=== PATIENT | female | born 1955 | race Caucasian/White ===

== ENCOUNTER 2019-09-05 08:57 | Inpatient (IN) | payer MEDICARE ==
--- NOTE | 2019-08-23 03:54 | HPE ---
DATE OF PLANNED ADMISSION: 09/05/2019 CHIEF COMPLAINT: Plan for right shoulder reverse total shoulder arthroplasty (RTSA). HISTORY OF PRESENT ILLNESS: This is a 64-year-old female who underwent rotator cuff repair. This failed. She has osteoarthritis. She has great difficulty lifting her shoulder and pain deep in the shoulder with stiffness and grinding. We plan to perform right shoulder RTSA for her. She is here today for preoperative assessment. She has not yet gotten the blood work, chest x-ray, and ECG; however, she plans to do this today at [facility]. She is otherwise healthy with only dyslipidemia. Therefore, we have not ordered a preoperative consultation. PHYSICAL EXAMINATION: This is a well-appearing 64-year-old female. Active/passive forward elevation about 90 degrees, internal rotation of 10 degrees. She has some crepitus/grinding with joint pain deep in the shoulder. Otherwise, no obvious overlying limb swelling, deformity, or atrophy. Normal sensation axillary nerve plus median (M), radial (R), ulnar (U), anterior interosseous nerve (AIN), posterior interosseous nerve (PIN) good motor function. ASSESSMENT AND PLAN: This 64-year-old female has planned surgery in about 3 weeks for reverse total shoulder arthroplasty. We will go ahead and order an urgent CT scan as well to help with surgical planning as well as day to the operating room (OR) implant positioning. In addition, I have reminded her to fax over the blood work, chest x-ray, and ECG to the office. I answered a number of her questions, including recovery length time, planned physical therapy, sling, and position with the patient at length. Looking forward to seeing her the day of the OR.
[~2019-09-05] VITALS: Ht 167.6 cm; Wt 67.0 kg
[2019-09-05] VITALS (7 sets, daily range): BP systolic 115–122; BP diastolic 55–74
[~2019-09-05 08:57] MED LIST: ACETAMINOPHEN 500 MG TAB PO ONE; BUSP-29 PO; CLON0.5T; CLON1TAB; COUM1TAB18; FLAG500T; GEODON; K-TA10TA2 PO; KLON1TAB PO; LIDOCAINE 1% MDV 20ML VIAL SQ PRN; LOVE1INJ; LR 1,000 ML IV ONE; NICO14DI3; PERCOCET 5MG/325MG TAB PO ONE; POTASSIUM; PRISTIQ; PROV90AE; REGL5TAB2 PO; SEROQUEL; SIMV20TA22 PO; UNRESOLVED CLARIFICATION ENTRY XX SCH; VANC12CA; ceFAZolin SOD 2 GM in IV 1 EA IV ONE
[2019-09-05] MEDS ORDERED: CelecoXIB 400 MG CAP PO ONE (10:00)
[2019-09-05] MEDS ORDERED: MIDAZOLAM INJ 2 MG/2 ML VIAL (J2250) As Ordered ONE ×2 (10:19→10:31)
[2019-09-05] MEDS ORDERED: fentaNYL 100 MCG/2 ML INJECTION (J3010) As Ordered ONE (10:19)
[2019-09-05] MEDS ORDERED: SCOPOLAMINE 1MG TRANSDERMAL PATCH As Ordered ONE (10:27)
[2019-09-05] MEDS ORDERED: fentaNYL 250 MCG/5 ML INJECTION (J3010) As Ordered ONE (10:31)
[2019-09-05] MEDS ORDERED: propofoL 200 MG/20 ML VIAL As Ordered ONE (10:31)
[2019-09-05] MEDS ORDERED: ROCURONIUM BROMIDE 50 MG/5 ML VIAL As Ordered ONE (10:31)
[2019-09-05] MEDS ORDERED: LIDOCAINE 2% INJ 100 MG/5 ML SDV (FOR ANES.) As Ordered ONE (10:31)
[2019-09-05] MEDS ORDERED: SCOPOLAMINE 1MG TRANSDERMAL PATCH TOP ONE (10:45)
[2019-09-05] MEDS ORDERED: LACRILUBE (AKWA TEARS) OPHTH OINT 3.5 GM As Ordered ONE (10:52)
[2019-09-05] MEDS ORDERED: TRANEXAMIC ACID 100 MG/ML 10ML VIAL As Ordered ONE (10:57)
[2019-09-05] MEDS ORDERED: ceFAZolin 1GM INJ (J0690 PER 500MG) As Ordered ONE (10:58)
[2019-09-05] MEDS ORDERED: EPINEPHrine INJ 1 MG/ML 1ML VIAL As Ordered ONE (10:58)
[2019-09-05] MEDS ORDERED: BUPIVACAINE LIPOSOME/PF 1.3% 20ML VIAL (13.3MG/ML)(EXPAREL)(C9290 PER1MG) As Ordered ONE (10:58)
[2019-09-05] MEDS ORDERED: BUPIVACAINE HCL 0.25% 10 ML VIAL As Ordered ONE ×2 (10:58→11:50)
[2019-09-05] MEDS ORDERED: BUPIVACAINE HCL 0.5% 10 ML VIAL As Ordered ONE (11:50)
[2019-09-05] MEDS ORDERED: SUCCINYLCHOLINE 100 MG/5 ML SYRINGE (J0330) As Ordered ONE (12:01)
[2019-09-05] MEDS ORDERED: PHENYLephrine HCL 500 MCG/5 ML (100MCG/ML) SYRINGE (J2370) As Ordered ONE (12:01)
[2019-09-05] MEDS ORDERED: dexameTHASONE 4 MG/ML 1ML VIAL (J1100) As Ordered ONE (12:30)
[2019-09-05] MEDS ORDERED: ONDANSETRON 4MG/2ML VIAL (J2405) As Ordered ONE (12:30)
[2019-09-05] MEDS ORDERED: METOCLOPRAMIDE INJ 10MG/2ML VIAL (J2765) As Ordered ONE (12:30)
[2019-09-05] MEDS ORDERED: MIDAZOLAM INJ 2 MG/2 ML VIAL (J2250) IV ONE (13:15)
[2019-09-05] MEDS ORDERED: fentaNYL 100 MCG/2 ML INJECTION (J3010) IV ONE (13:15)
[2019-09-05] MEDS ORDERED: SUGAMMADEX SODIUM 500 MG/5 ML VIAL (BRIDION) As Ordered ONE (13:15)
[2019-09-05] MEDS ORDERED: ROPIvacaine 0.5% 30 ML INJECTION (J2795 PER 1MG) ONE (13:33)
[2019-09-05] MEDS ORDERED: dexameTHASONE 10 MG/1 ML VIAL PRES.FREE (J1100) ONE (13:33)
[2019-09-05] MEDS ORDERED: ONDANSETRON 4MG/2ML VIAL (J2405) IV PRN ×2 (14:15→14:30)
[2019-09-05] MEDS ORDERED: LR 1,000 ML IV SCH ×2 (14:15→14:30)
[2019-09-05] MEDS ORDERED: oxyCODONE 5MG TAB PO PRN (14:15)
[2019-09-05] MEDS ORDERED: fentaNYL 100 MCG/2 ML INJECTION (J3010) IV PRN (14:15)
[2019-09-05] MEDS ORDERED: HYDROMORPHONE HCL 0.5 MG/ 0.5 ML SYRINGE (J1170 PER 1) As Ordered ONE (14:27)
[2019-09-05] MEDS: HYDROMORPHONE HCL 0.5 MG/ 0.5 ML SYRINGE (J1170 PER 1) IV PRN ×5 (14:29→15:18)
[2019-09-05] MEDS ORDERED: MORPHINE 4 MG/ML 1ML VIAL/SYRINGE (J2270) IV PRN (14:30)
[2019-09-05] MEDS ORDERED: PERCOCET 5MG/325MG TAB PO PRN ×2 (14:30)
[2019-09-05] MEDS ORDERED: oxyCODONE 5MG TAB As Ordered ONE (15:17)
[2019-09-05] MEDS: ceFAZolin SOD 2 GM in IV 1 EA IV SCH (17:16)
[2019-09-05] MEDS: ACETAMINOPHEN TAB 650MG DOSE (2X325MG) PO PRN ×2 (17:17→20:21)
[2019-09-05] MEDS ORDERED: PROMETHAZINE INJ 25 MG/ML VIAL (J2550) IV PRN (21:30)
[2019-09-06] MEDS: ceFAZolin SOD 2 GM in IV 1 EA IV SCH (01:09)
[2019-09-06] MEDS: MORPHINE 2 MG/ML 1ML VIAL (J2270) IV PRN ×2 (01:10→03:52)
[2019-09-06 02:00] VITALS: BP 115/65
[2019-09-06] MEDS: ACETAMINOPHEN TAB 650MG DOSE (2X325MG) PO PRN ×2 (03:50→09:33)
[2019-09-06 06:00] VITALS: BP 115/65
[2019-09-06] MEDS ORDERED: ACET-897 PO (07:43)
[2019-09-06] MEDS ORDERED: OXYC-517 PO ×2 (07:43→07:46)
--- NOTE | 2019-09-06 09:02 | RO ---
DATE OF SURGERY: 09/05/2019 PREOPERATIVE DIAGNOSIS: Right shoulder osteoarthritis with massive rotator cuff tear. POSTOPERATIVE DIAGNOSIS: Right shoulder osteoarthritis with massive rotator cuff tear. PLANNED PROCEDURE: Right shoulder reverse total shoulder arthroplasty. PROCEDURE PERFORMED: Right shoulder reverse total shoulder arthroplasty. SURGEON: Matthew Schrader MD HAND II TUBE BENDER: CHARLES Yu CEMENT TESTER ASSISTANT: Dr. Castellon TYPE OF ANESTHETIC: General endotracheal anesthetic plus block. OPERATIVE PREAMBLE: This 64-year-old female underwent rotator cuff repair. This failed. She also has osteoarthritis with superior humeral head migration. We talked about pros, cons, risks, benefits of nonoperative treatment versus attempted arthroscopy for debridement, rotator cuff repair versus reversal shoulder arthroplasty. She wished to go ahead with a definitive solution, which would be reverse total shoulder arthroplasty (RTSA). Specific surgical risks were discussed and reiterated in preoperative holding. I marked the right upper extremity. She had a block before surgery, and we proceeded to surgery. OPERATIVE REPORT: Patient was brought to operating theater. They were placed supine on the operating room table. 2 grams of IV Ancef and 2 grams of IV tranexamic acid was administered. All bony prominences were padded. Beach chair was used with spider arm positioner to the patient's right side. General anesthesia was induced. The arm was prepped and draped in the usual sterile fashion allowing at least over 3 minutes prep solution drying time. The patient was sat up at a 45-degree angle. Preoperative time-out was performed to confirm the site, the patient, and surgery. Began by making a standard deltopectoral approach. Then carried dissection down through the skin and subcutaneous tissue achieving meticulous hemostasis. The deltopectoral interval and cephalic vein retracted out laterally. I sized the lateral border of the conjoined tendon and retracted this medially. I identified the biceps sheath and tendon. I performed biceps tenodesis with #2 FiberWire. I performed a subscapularis tenotomy, placed stay sutures in that. Retracted this medially. Then using external rotation, I dislocated the humeral head anteriorly. Removed osteophytes along the inferior humeral head and metaphyseal region. I placed the intramedullary cut guide at 20 degrees retroversion in line with the arm. I performed the head cut. This was removed. I then used retractors to access the glenoid. Labrum was removed as well as the long head of biceps tendon stump removed. Inserted the central pin in the center of the glenoid. I reamed the face very slightly preferentially anteriorly down to bleeding bone. I then used the SR medium peg drill centrally. I then thoroughly irrigated using pulse lavage. I then impacted the SR baseplate. I used the flexible drill to drill the superior and inferior screws and inserted a 20 mm screw superiorly and 25 mm screw inferiorly. This achieved a good bite. The inferior most screw achieved a slightly better bite. I then again irrigated and impacted a 20 mm glenosphere concentric with the extended portion inferiorly. Humeral side was then brought anteriorly. I used a 14 mm stem through reverse body trialing. This was stable and solid. I used the standard 40 mm poly that was stable and solid. No obvious impingement. No dislocation with manual traction extension. It was quite stable and solid. The patient able to get their as well as full external rotation without levering out. This was similarly stable with the arm on side of the body during the body. These were the final components. Just prior to that, I had used the reverse body reamer prior to trialing. Trials were removed and assembled on the back table and impacted into the humeral canal in 20 degrees retroversion. Again, the reverse body was irrigated, cleaned, and then the standard size 40 mm polyethylene component was then impacted in place. The humerus was then reduced and again stable and solid. Normal tension was appreciated in full range of motion. I then attempted to repair the subscapularis; however, this was quite extremely thin tissue. There was no obvious cuff to repair to, so I decided to do bone tunnels. I placed one bone tunnel using the #2 FiberWire suture superiorly as well as 4.75 mm BioComposite Arthrex SwiveLock anchor inferiorly with the four sutures through that. The top sheared off slightly, but the anchor was stable and solid. The wound was thoroughly irrigated. Deltopectoral interval was closed with #1 Vicryl sutures, subcutaneous tissue with #2-0 Vicryl, and the skin with #3-0 Monocryl. 20 mL of Exparel mixed with 20 mL of 0.25% Marcaine and 20 mL of normal saline was instilled in and around the incision site. Steri-Strips were applied. Adaptic 4 x 8 gauze and ABD dressing was then placed with cloth tape. The patient's left upper extremity was placed into a sling after they were removed from spider arm setup. Patient was awoken from general anesthetic, transferred off the operating room table, and taken to postanesthetic care unit in stable condition. All sponge, needle, and instrument counts were correct. Estimated blood loss (EBL) 200 mL. PLAN: The patient will be admitted overnight. Be discharged home tomorrow as long as they are comfortable. They will followup in the office in 2 weeks' time. They will start pendulum exercises as well as hand, wrist, and elbow exercises, but no lifting of the arm or external rotation beyond neutral. I have communicated this to their significant other as well. We will also give two doses of postoperative antibiotics in the standard fashion here at [facility].
[2019-09-06] MEDS ORDERED: PREVNAR 13 VACCINE SYRINGE (CPT CODE:90670) IM ONE (10:00)
--- NOTE | 2019-09-09 15:46 | DSES ---
DATE OF ADMISSION: 09/05/2019 DATE OF DISCHARGE: 09/06/2019 ADMISSION DIAGNOSIS: Osteoarthritis right shoulder. OTHER DIAGNOSES: 1. Obesity. 2. Gastric reflux disease. 3. Elevated lipids. 4. Anxiety. 5. Depression. DISCHARGE DIAGNOSIS: Osteoarthritis right shoulder status post right shoulder reverse total shoulder arthroplasty. HISTORY: A 64-year-old female patient, prior history of a rotator cuff repair with persistent right shoulder pain and osteoarthritis. She failed to improve with conservative management. She was admitted for elective shoulder replacement. OPERATION PERFORMED: Right shoulder reverse total shoulder arthroplasty. HOSPITAL COURSE: The patient was admitted on day of surgery, underwent a right total shoulder reverse arthroplasty. It was well tolerated by the patient without incident. She did well in the postoperative period and her hospital course was without complications. She was up with the nursing staff and therapy. On day of discharge she was doing well. Her pain was controlled. She will use oral pain medications for pain control. She will use her sling as directed. She will follow up in our office in two weeks. She understands the postoperative instructions. No use of the right upper extremity. She will be nonweightbearing on the right upper extremity, would exercise what she can and cannot do. She will use oral pain medication for pain control. She will follow up in two weeks with Dr. Schrader. Please refer to the medical record for further details.
== END 2019-09-06 10:35 | disposition home or self-care (01) | DRG 483 ==
LOC: M SDC 08:57 → M MS5PR 08:57 → M OR 08:57 → UNDOADMIN 08:57 → EDSTATUS 11:15 → M SDC 15:45 → M OR 15:45 → M MS5PR 15:45 → UNDODISIN 09-06 10:35 → M SDC 09-06 10:35 → M MS5PR 09-06 10:35
PROVIDERS: ADMIT Orthopaedic Surgery Sports Medicine; ATTEND Orthopaedic Surgery Sports Medicine
PROC: 0RRJ00Z Replacement of Right Shoulder Joint with Reverse Ball and Socket Synthetic Substitute, Open Approach (ICD-10-PCS; principal; 2019-09-05 11:15)
DX: M19.011 Primary osteoarthritis, right shoulder (principal); M75.121 Complete rotator cuff tear or rupture of right shoulder, not specified as traumatic; K21.9 Gastro-esophageal reflux disease without esophagitis; F41.9 Anxiety disorder, unspecified; F32.9 Major depressive disorder, single episode, unspecified

== ENCOUNTER → 2020-09-12 | Outpatient (CLI) | payer MEDICARE ==
[~2020-09-12] MED LIST changes: +ACET-897 PO; -ACETAMINOPHEN 500 MG TAB PO ONE; -LIDOCAINE 1% MDV 20ML VIAL SQ PRN; -LR 1,000 ML IV ONE; +OXYC-517 PO; -PERCOCET 5MG/325MG TAB PO ONE; -UNRESOLVED CLARIFICATION ENTRY XX SCH; -ceFAZolin SOD 2 GM in IV 1 EA IV ONE
--- NOTE | 2020-09-12 12:50 | REP ---
INDICATION: PAIN IN RT ARM. COMPARISON: Comparison chest x-ray February 27, 2016.. TECHNIQUE: Four views of the right shoulder are presented FINDINGS: . there is a right shoulder arthroplasty in good position new since the prior chest x-ray. There are surgical clips in the right axillary soft tissues again noted. The distal clavicle appears AB resected on the right. The glenohumeral and acromioclavicular joints are normally aligned. The arthroplasty components are well aligned with respect to each other and there are hoh bones. IMPRESSION: Status post right shoulder arthroplasty and distal clavicle resection. Surgical clips right axilla. No acute bony abnormality. <Electronically signed by Tonny Beckman > 09/12/20 [id number]
--- NOTE | 2020-09-12 12:54 | REP ---
INDICATION: PAIN IN RT ARM. COMPARISON: Right shoulder performed earlier the same date. TECHNIQUE: There are two views. FINDINGS: The right shoulder arthroplasty is again identified, not significantly changed. There is no fracture or dislocation. There are no calcifications or foreign bodies. IMPRESSION: Negative right humerus except for a right shoulder arthroplasty. <Electronically signed by Cmaden Billingsley > 09/12/20 [id number]
--- NOTE | 2020-09-12 13:36 | REP ---
INDICATION: PAIN IN RT ARM. COMPARISON: None. TECHNIQUE: Two views, AP and lateral projections. FINDINGS: Mineralization and joint spaces are unremarkable. There is no effusion. There are no calcifications or foreign bodies. There is no fracture or dislocation. 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 IMPRESSION: Essentially negative two view right elbow. <Electronically signed by Camden Billingsley > 09/12/20 [id number]
== END ==
LOC: M SOG 11:26
PROVIDERS: ATTEND Orthopaedic Surgery Sports Medicine
DX: Z47.1 Aftercare following joint replacement surgery (principal); M79.621 Pain in right upper arm

== ENCOUNTER → 2021-08-19 | Outpatient (CLI) | payer MEDICARE | LOC: M SOG 09:17 | PROVIDERS: ATTEND Orthopaedic Surgery Sports Medicine | DX: Z47.1 Aftercare following joint replacement surgery (principal); M79.621 Pain in right upper arm; M77.11 Lateral epicondylitis, right elbow ==

== ENCOUNTER → 2022-09-16 | Outpatient (REF) | payer MEDICARE ==
[~2022-09-16] MED LIST changes: -BUSP-29 PO; +BUSP10TA79 PO
== END ==
LOC: M SFHCWOUN 11:39
PROVIDERS: ATTEND Surgery
DX: C44.619 Basal cell carcinoma of skin of left upper limb, including shoulder (principal)
CPT/HCPCS: 11042; 88305; G0463

== ENCOUNTER → 2022-09-23 | Outpatient (REF) | payer MEDICARE | LOC: M SFHCWOUN 17:28 | PROVIDERS: ATTEND Surgery | DX: C44.619 Basal cell carcinoma of skin of left upper limb, including shoulder (principal); L90.5 Scar conditions and fibrosis of skin ==

== ENCOUNTER 2024-05-09 11:53 | Day surgery (SDC) | payer OTHER ==
[~2024-05-09] VITALS: Ht 167.6 cm; Wt 69.9 kg
[~2024-05-09 11:53] MED LIST changes: +BUSP10TA PO; +CLON1TAB8 PO; +CVS500CA5 PO; +CYCL-707 PO; +ELIQ5TAB PO; +EZET10TA21 PO; +FLUTISP; -K-TA10TA2 PO; -KLON1TAB PO; +KLON1TAB13 PO; +MECL-86 PO; +NS 250 ML IV ONE; +OMEP-173 PO; +POTA-165 PO; +POTA1TAB23 PO; +QUET300T93 PO; +ROSU10TA61 PO; +THERTAB52 PO
[2024-05-09 12:24] VITALS: TEMP 96.1
[2024-05-09] MEDS ORDERED: propofoL 200 MG/20 ML VIAL As Ordered ONE (14:00)
[2024-05-09] MEDS ORDERED: LIDOCAINE 2% 100MG/5ML SDV (FOR ANES.) As Ordered ONE (14:00)
[2024-05-09 14:35] VITALS: BP 116/56; O2SAT 96
== END 2024-05-09 14:36 | disposition home or self-care (01) ==
LOC: M OPP 11:53
PROVIDERS: ATTEND Internal Medicine Gastroenterology
DX: K31.84 Gastroparesis (principal); E78.00 Pure hypercholesterolemia, unspecified; K21.9 Gastro-esophageal reflux disease without esophagitis; F41.9 Anxiety disorder, unspecified; F32.A Depression, unspecified; Z86.711 Personal history of pulmonary embolism; Z86.718 Personal history of other venous thrombosis and embolism; Z85.3 Personal history of malignant neoplasm of breast; Z92.21 Personal history of antineoplastic chemotherapy; Z92.3 Personal history of irradiation; Z87.891 Personal history of nicotine dependence; Z88.2 Allergy status to sulfonamides; Z88.5 Allergy status to narcotic agent; Z88.6 Allergy status to analgesic agent; Z88.8 Allergy status to other drugs, medicaments and biological substances; Z79.01 Long term (current) use of anticoagulants; Z79.51 Long term (current) use of inhaled steroids; Z79.899 Other long term (current) drug therapy

== ENCOUNTER 2024-08-18 16:38 | Emergency (ER) | payer MEDICARE, OTHER ==
[~2024-08-18] VITALS: Ht 167.6 cm; Wt 63.5 kg
[~2024-08-18 16:38] MED LIST changes: -NS 250 ML IV ONE
[2024-08-18 17:49] LABS: BASO % 0.2 % (0.0-1.0); EOS % 0.2 % (0.0-3.0); HEMATOCRIT 35.1 % (36.0-47.0); HEMOGLOBIN 11.7 g/dl (12.0-15.5); LYMPH # 0.7 10^3/uL (1.5-5.0); LYMPH % 7.5 % (24.0-44.0); MEAN CORPUSCULAR HEMOGLOBIN 31.1 pg (27.0-33.0); MEAN CORPUSCULAR HGB CONC 33.3 g/dl (32.0-36.5); MEAN CORPUSCULAR VOLUME 93.4 fl (80.0-96.0); MONO # 0.4 10^3/uL (0.0-0.8); MONO % 4.5 % (2.0-8.0); NEUTROPHILS # 8.2 10^3/uL (1.5-8.5); NEUTROPHILS % 87.1 % (36.0-66.0); PLATELET COUNT, AUTOMATED 186 10^3/uL (150-450); RED BLOOD COUNT 3.76 10^6/uL (4.00-5.40); WHITE BLOOD COUNT 9.4 10^3/uL (4.0-10.0)
[2024-08-18] MEDS: ONDANSETRON 4MG 2ML VIAL IV ONE (17:57)
[2024-08-18] MEDS: fentaNYL 100 MCG/2 ML INJECTION IV ONE (17:57)
[2024-08-18 18:02] LABS: INR 1.04; PARTIAL THROMBOPLASTIN TIME 27.6 SECONDS (24.8-34.2); PROTHROMBIN TIME 13.9 SECONDS (12.5-14.5)
[2024-08-18 18:19] LABS: ETHYL ALCOHOL (ETHANOL) 0.006 % (0.000-0.010)
[2024-08-18 18:22] LABS: AMYLASE 33 U/L (30-118)
[2024-08-18 18:26] LABS: ALBUMIN 2.9 G/DL (3.2-5.2); ALKALINE PHOSPHATASE 85 U/L (35-104); ALT/SGPT 14 U/L (7.0-40); AST/SGOT 29 U/L (<34); BILIRUBIN,DIRECT 0.1 MG/DL (<0.4); BILIRUBIN,TOTAL 0.4 MG/DL (0.3-1.2); BLOOD UREA NITROGEN 31 MG/DL (9-23); CALCIUM LEVEL 8.5 MG/DL (8.3-10.6); CARBON DIOXIDE LEVEL 21 MMOL/L (20-31); CHLORIDE LEVEL 108 MMOL/L (98-107); CK-MB VALUE MASS 1.2 NG/ML (<3.6); CPK CREATINE PHOSPHOKINASE 94 U/L (34-145); CREATININE FOR GFR 0.66 MG/DL (0.55-1.30); GLOMERULAR FILTRATION RATE > 60.0 (>39); GLUCOSE, FASTING 109 MG/DL (74-106); LIPASE 26 U/L (12-53); MB/CK RELATIVE INDEX 1.27 (< OR =4); POTASSIUM SERUM 4.6 MMOL/L (3.5-5.1); SODIUM LEVEL 140 MMOL/L (136-145); TOTAL PROTEIN 5.7 G/DL (5.7-8.2)
[2024-08-18] MEDS ORDERED: TRAM50TA2 PO (19:47)
[2024-08-18] MEDS ORDERED: misc (19:56)
[2024-08-18] MEDS: MECLIZINE 25 MG TABLET PO ONE (20:42)
[2024-08-18] MEDS: NORCO 5/325MG TABLET (HOME DOSE PACK) PO ONE (20:43)
[2024-08-18 20:45] VITALS: BP 159/72; TEMP 96.6; O2SAT 98
== END 2024-08-18 21:00 | disposition home or self-care (01) ==
LOC: M ED 16:38 → EDBD 16:38 → M ED 21:00
DX: M53.3 Sacrococcygeal disorders, not elsewhere classified (principal); S70.01XA Contusion of right hip, initial encounter; S70.02XA Contusion of left hip, initial encounter; M51.34 Other intervertebral disc degeneration, thoracic region; M46.96 Unspecified inflammatory spondylopathy, lumbar region; M46.92 Unspecified inflammatory spondylopathy, cervical region; M51.360 Other intervertebral disc degeneration, lumbar region with discogenic back pain only; W10.8XXA Fall (on) (from) other stairs and steps, initial encounter; F41.9 Anxiety disorder, unspecified; F32.A Depression, unspecified; Y92.009 Unspecified place in unspecified non-institutional (private) residence as the place of occurrence of the external cause; Y93.89 Activity, other specified; Y99.9 Unspecified external cause status; Z88.2 Allergy status to sulfonamides; Z88.5 Allergy status to narcotic agent; Z88.6 Allergy status to analgesic agent; Z79.01 Long term (current) use of anticoagulants; Z79.1 Long term (current) use of non-steroidal anti-inflammatories (NSAID); Z79.899 Other long term (current) drug therapy
CPT/HCPCS: 70450; 71045; 72125; 72128; 72131; 73502; 80047; 80048; 80076; 82077; 82150; 82550; 82553; 83605; 83690; 84484; 85025; 85610; 85730; 86850; 86900; 86901; 93005; 93041; 94760; 96374; 99285; J2405; J3010